=== PATIENT | male | born 1995 | race Hispanic/Latino ===

== ENCOUNTER 2019-11-22 14:52 | Emergency (ER) | payer SELFPAY ==
--- NOTE | 2019-11-22 16:19 | RAD ---
XR Chest Pa Lat STANDARD HISTORY: Cough COMPARISON: None FINDINGS: The heart size is normal. The lungs are well expanded without focal areas of consolidation, pneumothorax or pleural effusions. IMPRESSION: No radiographic evidence of acute cardiopulmonary process.
== END 2019-11-22 17:25 | disposition home or self-care (01) ==
LOC: ERS 14:52
DX: J20.9 Acute bronchitis, unspecified (principal); F17.210 Nicotine dependence, cigarettes, uncomplicated; F31.9 Bipolar disorder, unspecified
CPT/HCPCS: 71046; 87804; 93005

== ENCOUNTER 2021-03-26 14:27 | Emergency (ER) | payer BC, SELFPAY ==
[2021-03-26] MEDS ORDERED: Ketorolac Tromethamine 30 MG/ML VIAL ONE (15:05)
[2021-03-26] MEDS ORDERED: HYDROcodone/Acetaminophen 5/325 mg Tablet ONE (15:05)
== END 2021-03-26 15:10 | disposition home or self-care (01) ==
LOC: ERS 14:27
DX: K03.81 Cracked tooth (principal); K02.9 Dental caries, unspecified; K08.89 Other specified disorders of teeth and supporting structures; F17.210 Nicotine dependence, cigarettes, uncomplicated
CPT/HCPCS: 96372; 99282; J1885

== ENCOUNTER 2021-12-02 15:32 | Emergency (ER) | payer SELFPAY | END 2021-12-02 15:41 | disposition home or self-care (01) | LOC: ERS 15:32 | DX: M54.9 Dorsalgia, unspecified (principal); F17.210 Nicotine dependence, cigarettes, uncomplicated | CPT/HCPCS: 99281 ==

== ENCOUNTER 2021-12-09 18:34 | Emergency (ER) | payer SELFPAY | END 2021-12-09 19:49 | disposition home or self-care (01) | LOC: ERS 18:34 | DX: S80.02XA Contusion of left knee, initial encounter (principal); W20.8XXA Other cause of strike by thrown, projected or falling object, initial encounter; F17.210 Nicotine dependence, cigarettes, uncomplicated ==

== ENCOUNTER 2021-12-19 14:10 | Emergency (ER) | payer SELFPAY ==
[2021-12-19 21:03] LABS: SARS-CoV-2 PCR by NAA DETECTED (NotDetected)
== END 2021-12-19 15:25 | disposition home or self-care (01) ==
LOC: ERS 14:10
DX: U07.1 COVID-19 (principal); F17.210 Nicotine dependence, cigarettes, uncomplicated
CPT/HCPCS: 99283; U0003; U0005

== ENCOUNTER 2024-01-08 13:59 | Emergency (ER) | payer OTHER, SELFPAY ==
[2024-01-08] MEDS ORDERED: Ibuprofen 200 MG TAB ONE (16:30)
[2024-01-08] MEDS ORDERED: Acetaminophen 500 MG TAB ONE (16:30)
[2024-01-08 17:37] LABS: SARS-CoV-2 NAA Rapid Test Not Detected (NotDetected)
== END 2024-01-08 18:16 | disposition home or self-care (01) ==
LOC: ERS 13:59
DX: J06.9 Acute upper respiratory infection, unspecified (principal); F17.210 Nicotine dependence, cigarettes, uncomplicated; Z75.3 Unavailability and inaccessibility of health-care facilities
CPT/HCPCS: 99283

== ENCOUNTER 2025-07-16 06:42 | Emergency (ER) | payer SELFPAY | END 2025-07-16 08:30 | disposition home or self-care (01) | LOC: ERS 06:42 | DX: J18.9 Pneumonia, unspecified organism (principal); I10 Essential (primary) hypertension; F17.210 Nicotine dependence, cigarettes, uncomplicated | CPT/HCPCS: 71045; 87428 ==

== ENCOUNTER 2025-08-19 11:21 | Emergency (ER) | payer SELFPAY ==
[2025-08-19] MEDS ORDERED: Ibuprofen 200 MG TAB ONE (13:39)
[2025-08-19] MEDS ORDERED: predniSONE 20 MG TAB ONE (13:39)
[2025-08-19] MEDS ORDERED: Benzonatate 100 MG CAP ONE (13:44)
== END 2025-08-19 14:44 | disposition home or self-care (01) ==
LOC: ERS 11:21
DX: J18.9 Pneumonia, unspecified organism (principal); I10 Essential (primary) hypertension; F17.210 Nicotine dependence, cigarettes, uncomplicated; Z55.6 Problems related to health literacy
CPT/HCPCS: 71045; 87081; 87426; 87430; 94640; J7512

== ENCOUNTER 2025-11-08 14:42 | Emergency (ER) | payer OTHER ==
[2025-11-08 17:51] LABS: #Basophils Less than 0.03 10x3/uL (0.0-0.2); #Eosinophils 0.07 10x3/uL (0.0-0.7); #Monocytes 0.36 10x3/uL (0.11-0.59); #Neutrophils 3.88 10x3/uL (1.40-6.50); %Basophils 0.3 % (0.0-1.0); %Eosinophils 1.2 % (0.0-10.0); %Lymphocytes 28.3 % (21.0-51.0); %Monocytes 6.0 % (0.0-10.0); %Neutrophils 64.0 % (42.0-75.0); Hematocrit 41.7 % (42.0-52.0); Hemoglobin 13.9 g/dL (14.0-18.0); Mean Corpuscular Hemoglobin 29.7 pg (27.0-31.0); Mean Corpuscular Volume 89.1 fL (78.0-98.0); Platelet Count 201 10x3/uL (130-400); Red Blood Cell (RBC) Count 4.68 mill/uL (4.70-6.10); White Blood Cell (WBC) Count 6.05 10x3/uL (4.8-10.8)
[2025-11-08 18:15] LABS: ALT (SGPT) 13 U/L (Less than 45); AST (SGOT) 23 U/L (11-34); Albumin 4.1 g/dL (3.1-4.5); Alkaline Phosphatase 121 U/L (40-110); Anion Gap 18 mmol/L (10-20); BUN (Urea Nitrogen) 6 mg/dL (8.9-20.6); Bilirubin, Total 0.5 mg/dL (0.3-1.2); Calc. Creatinine Clearance 0 mL/min (70-130); Calcium 9.6 mg/dL (7.8-10.44); Carbon Dioxide 23 mmol/L (22-29); Chloride 102 mmol/L (98-107); Globulin 2.9 g/dL (2.4-3.5); Glucose 98 mg/dL (70-105); Potassium 3.7 mmol/L (3.5-5.1); Sodium 139 mmol/L (136-145)
[2025-11-08] MEDS ORDERED: Furosemide 20 MG (2 mL) VIAL ONE (19:28)
== END 2025-11-08 23:33 | disposition left against medical advice (07) ==
LOC: ERS 14:42
DX: I11.0 Hypertensive heart disease with heart failure (principal); I50.20 Unspecified systolic (congestive) heart failure; Z53.21 Procedure and treatment not carried out due to patient leaving prior to being seen by health care provider; Z87.891 Personal history of nicotine dependence
CPT/HCPCS: 36415; 71045; 80053; 83880; 84484; 85025; 85379; 87428; 93005; 96374; J1940